=== PATIENT | female | born 1935 | race Caucasian/White ===

== ENCOUNTER 2017-10-13 15:43 | Emergency (ER) | payer MEDICARE, BC ==
--- NOTE | 2017-10-13 17:35 | CT ---
NONCONTRAST CT HEAD 10/13/17 HISTORY: Fall, head injury. Patient is on Eliquis. COMPARISON: 04/25/14. FINDINGS: There are areas of decreased attenuation in the periventricular white matter which are nonspecific bu t likely reflective of mild chronic small vessel ischemic changes. There is no evidence of an acute cortical infarction, hemorrhage, mass effect, or midline shift. There is mild cerebral volume loss si milar to the prior exam. Ventricular system is normal in size, shape, and position for the degree of sulcal atrophy. No calvarial fracture is seen. The visualized paranasal sinuses and mastoid air cells are clear. IMPRESSION: No acute intracranial abnormalities demonstrated. CT scan of the head is stable from prior study in 2 014. POS: DRAKE
== END 2017-10-13 16:36 | disposition home or self-care (01) ==
LOC: SCSER 15:43
DX: S09.90XA Unspecified injury of head, initial encounter (principal); E78.5 Hyperlipidemia, unspecified; I10 Essential (primary) hypertension; Z79.82 Long term (current) use of aspirin; Z79.899 Other long term (current) drug therapy; W18.30XA Fall on same level, unspecified, initial encounter
CPT/HCPCS: 70450